=== PATIENT | male | born 1990 | race Caucasian/White ===

== ENCOUNTER 2017-03-04 16:59 | Emergency (ER) | payer BC ==
[~2017-03-04] VITALS: Ht 175.3 cm; Wt 140.0 kg
[2017-03-04 17:00] VITALS: BP 189/102; PULSE 106; RESP 14; TEMP 98.2; O2SAT 99
[2017-03-04 17:01] VITALS: BP 181/86
[2017-03-04] MEDS ORDERED: SODIUM CHLOR 0.9% 1000 ML INJ 1,000 ML IV SCH (17:17)
[2017-03-04] MEDS ORDERED: AMOX875T PO (17:17)
--- NOTE | 2017-03-04 17:17 | PD ---
HPI Chief Complaint: Headache Time Seen by Provider: 17:09 Travel History International Travel<30 days: No Contact w/Intl Traveler<30days: No Traveled to known affect area: No History of Present Illness HPI 20 facial male presents emergency department complaint of right frontal headache that started approximately 1 PM today. Has progressively worsened since onset. Rates pain 7/10. Describes as a pulsation. Denies history of headaches. Currently taking amoxicillin for the past 5 days for sinusitis. Blood pressure is elevated and reports history of high blood pressure readings but does not currently take medications. Denies change in vision. Denies lightheadedness, dizziness. Denies focal deficits or weakness. Denies confusion, disorientation, change in mentation, slurred speech. Denies chest pain, shortness of breath, abdominal pain, vomiting. Has taken Tylenol with no relief of symptoms. [facility] primary care provider. Denies other significant past medical history. No known allergies. Has no medical complaints. No modifying factors or associated signs and symptoms. [facility] Social History Tobacco Use: No Allergies-Medications (Allergen,Severity, Reaction): Coded Allergies: No Known Allergies (Unverified , 03/04/17) Reported Meds & Prescriptions Reported Meds & Active Scripts Active Reported Amoxicillin 875 Mg Tab 875 Mg PO BID 10 Days Review of Systems Except as stated in HPI: all other systems reviewed are Neg Physical Exam Narrative GENERAL: Well-nourished, well-developed male patient, in no acute distress; afebrile, nontoxic-appearing SKIN: Warm and dry. HEAD: Atraumatic. Normocephalic. No facial droop noted. Tongue midline. EYES: Pupils equal and round at 3 mm with brisk reaction. No scleral icterus. No injection or drainage. PERRLA. EOMI. ENT: Mucosa pink and moist. No erythema or exudates. No uvular edema. No uvular , palatal, or tonsillar deviation. Airway patent. EARS: Bilateral pinnae and external canals appear within normal limits. Bilateral tympanic membranes without erythema, dullness or perforation. NECK: Trachea midline. No lymphadenopathy. CARDIOVASCULAR: Regular rate and rhythm. No murmur appreciated. RESPIRATORY: No accessory muscle use. Clear to auscultation. Breath sounds equal bilaterally. GASTROINTESTINAL: Abdomen soft, non-tender, nondistended. Hepatic and splenic margins not palpable. Bowel sounds are active 4 quadrants. MUSCULOSKELETAL: No obvious deformities. No clubbing. No cyanosis. No edema. NEUROLOGICAL: Awake and alert. Oriented 4. No obvious cranial nerve deficits. Motor grossly within normal limits. Normal speech. No ataxia. No mid -line drift. Moves all extremities. 5/5 strength to all extremities. PSYCHIATRIC: Appropriate mood and affect; insight and judgment normal. Data Data Last Documented VS Vital Signs Date Time Temp Pulse Resp B/P (MAP) Pulse Ox O2 Delivery O2 Flow Rate FiO2 03/04/17 18:59 03/04/17 17:00 98.2 [address] Brain W/O Iv Contrast(Rout) (03/04/17 ) Basic Metabolic Panel (Bmp) (03/04/17 17:17) Complete Blood Count With Diff (03/04/17 17:17) Iv Access Insert/Monitor (03/04/17 17:17) Sodium Chlor 0.9% 1000 Ml Inj (Ns 1000 M (03/04/17 17:17) Sodium Chloride 0.9% Flush (Ns Flush) (03/04/17 17:30) Ketorolac Inj (Toradol Inj) (03/04/17 17:30) Metoclopramide Inj (Reglan Inj) (03/04/17 17:30) Ed Discharge Order (03/04/17 18:58) Labs Laboratory Tests Test 03/04/17 17:25 White Blood Count 11.4 TH/MM3 Red Blood Count 5.32 MIL/MM3 Hemoglobin 15.1 GM/DL Hematocrit 45.7 % Mean Corpuscular Volume 85.9 FL Mean Corpuscular Hemoglobin 28.5 PG Mean Corpuscular Hemoglobin Concent 33.1 % Red Cell Distribution Width 13.1 % Platelet Count 288 TH/MM3 Mean Platelet Volume 8.7 FL Neutrophils (%) (Auto) 71.2 % Lymphocytes (%) (Auto) 20.0 % Monocytes (%) (Auto) 6.0 % Eosinophils (%) (Auto) 2.0 % Basophils (%) (Auto) 0.8 % Neutrophils # (Auto) 8.1 TH/MM3 Lymphocytes # (Auto) 2.3 TH/MM3 Monocytes # (Auto) 0.7 TH/MM3 Eosinophils # (Auto) 0.2 TH/MM3 Basophils # (Auto) 0.1 TH/MM3 CBC Comment DIFF FINAL Differential Comment Blood Urea Nitrogen 16 MG/DL Creatinine 0.86 MG/DL Random Glucose 81 MG/DL Calcium Level 8.7 MG/DL Sodium Level 142 MEQ/L Potassium Level 3.8 MEQ/L Chloride Level 110 MEQ/L Carbon Dioxide Level 24.4 MEQ/L Anion Gap 8 MEQ/L Estimat Glomerular Filtration Rate 107 ML/MIN MDM Medical Decision Making Medical Screen Exam Complete: Yes Emergency Medical Condition: Yes Medical Record Reviewed: Yes Differential Diagnosis Cephalgia, hypertension, sinusitis Narrative Course 26-year-old male with cephalgia. Patient's blood pressure is elevated in the ER. He has history of high blood pressure readings but does not currently take medications. Denies chest pain or shortness of breath. Denies history of headaches. Headache onset at approximately 1 PM with worsening. Location is right frontal. Pulsating in nature. Patient is currently being treated with amoxicillin for sinusitis. Discussed the patient with Dr. Harding, my attending physician, and he agrees with my plan of care. CT head, CBC, BMP, Toradol, Reglan, normal saline fluid bolus ordered. 1849: CBC and BMP unremarkable. CT head concluded: Head CT 03/04/17 0000 Signed Impressions: Service Date/Time: Monday, March 04, 2017 18:18 - CONCLUSION: 1. Mild chronic sinusitis. 2. Otherwise negative Jorge Moss MD CT findings discussed with the patient. On reevaluation the patient's says his headache is gone. Blood pressure recheck is 143/83. Discussed signs and symptoms of hypertension and instructed patient to check blood pressure routinely and follow-up with primary care in regards to elevated blood pressure readings. Dr. Harding agrees with treatment plan ans discharge. Instructed patient to follow up with primary care provider. Patient verbalizes understanding and agreement with treatment plan. Patient is medically cleared and stable for discharge. Discussed reasons to return to the emergency department. Patient agrees with treatment plan. The patients vital signs are stable and the patient is stable for outpatient follow-up and treatment. Patient discharged home, stable and in no acute distress. Diagnosis Primary Impression: Acute headache Qualified Codes: R51 - Headache Additional Impressions: Elevated blood pressure reading Chronic sinusitis Qualified Codes: J32.9 - Chronic sinusitis, unspecified Referrals: [facility] Primary Care Physician Patient Instructions: Acute Headache (ED), General Instructions, Hypertension ( ED), Sinusitis (ED) Departure Forms: Tests/Procedures, Work Release Enter return to work date: Mar 05, 2017 Additional Instructions: Antibiotics as prescribed and complete full course Ibuprofen or Tylenol as instructed and as needed for fever/pain [id number] cough and cold medications as directed and as needed for symptom management Get plenty of sleep/rest Drink plenty of fluids to prevent dehydration; popsicles and Gatorade Use an air humidifier/turn off ceiling fans Check blood pressures routinely and log in a diary; take the diary to your primary care provider at your next visit Follow-up with primary care provider Return immediately to the emergency department with worsening of symptoms Med/Other Pt SpecificInfo: No Meds Exist/No RX given Disposition: 01 DISCHARGE HOME Condition: Stable Consuelo Dimas Mar 04, 2017 17:17
[2017-03-04] MEDS ORDERED: KETOROLAC TROMETHAMINE 30 MG/ML (IVP) VIAL IVP ONE (17:30)
[2017-03-04] MEDS ORDERED: SODIUM CHLORIDE 0.9% FLUSH 10 ML FLUSH IV FLUSH PRN (17:30)
[2017-03-04] MEDS ORDERED: METOCLOPRAMIDE HCL 10 MG/2 ML VIAL IV PUSH ONE (17:30)
[2017-03-04 17:58] LABS: AUTOMATED NEUTROPHIL # 8.1 TH/MM3 (1.8-7.7); BASOPHIL # 0.1 TH/MM3 (0-0.2); BASOPHIL % 0.8 % (0.0-2.0); EOSINOPHIL # 0.2 TH/MM3 (0-0.4); HEMATOCRIT 45.7 % (39.0-51.0); HEMO FLAGS DIFF FINAL; LYMPHOCYTE # 2.3 TH/MM3 (1.0-4.8); MEAN CELL VOLUME 85.9 FL (80.0-100.0); MEAN CORPUSCULAR HEMOGLOBIN 28.5 PG (27.0-34.0); MEAN CORPUSCULAR HGB CONC 33.1 % (32.0-36.0); NEUT % 71.2 % (16.0-70.0); PLATELET COUNT 288 TH/MM3 (150-450); RED BLOOD COUNT 5.32 MIL/MM3 (4.50-5.90); RED CELL DISTRIBUTION WIDTH 13.1 % (11.6-17.2); WHITE BLOOD COUNT 11.4 TH/MM3 (4.0-11.0)
[2017-03-04 18:13] LABS: BICARBONATE 24.4 MEQ/L (21.0-32.0); POTASSIUM 3.8 MEQ/L (3.5-5.1)
--- NOTE | 2017-03-04 18:26 | RADRPT ---
EXAM DATE/TIME: 03/04/2017 18:18 [place] COMPARISON: No previous studies available for comparison. INDICATIONS : Headache. RADIATION DOSE: 38.26 CTDIvol (mGy) MEDICAL HISTORY : None SURGICAL HISTORY : None. ENCOUNTER: Initial ACUITY: 1 day PAIN SCALE: 6/10 LOCATION: cranial TECHNIQUE: Multiple contiguous axial images were obtained of the head. Using automated exposure control and adj ustment of the mA and/or kV according to patient size, radiation dose was kept as low as reasonably a chievable to obtain optimal diagnostic quality images. DICOM format image data is available electro nically for review and comparison. FINDINGS: CEREBRUM: The ventricles are normal for age. No evidence of midline shift, mass lesion, hemorrhage or acute in farction. No extra-axial fluid collections are seen. POSTERIOR FOSSA: The cerebellum and brainstem are intact. The 4th ventricle is midline. The cerebellopontine angle i s unremarkable. EXTRACRANIAL: The visualized portion of the orbits is intact. The cobra ostial thickening in the ethmoid air cells bilaterally with minimal endosteal thickening posteriorly in the left maxillary antra. SKULL: The calvaria is intact. No evidence of skull fracture. CONCLUSION: 1. Mild chronic sinusitis. 2. Otherwise negative Jorge Moss MD on March 04, 2017 at 18:22 Board Certified Radiologist. This report was verified electronically.
[2017-03-04 18:59] VITALS: BP 133/87
== END 2017-03-04 19:45 | disposition home or self-care (01) ==
LOC: NEPD 16:59
DX: R51 Headache (principal); R03.0 Elevated blood-pressure reading, without diagnosis of hypertension; J32.9 Chronic sinusitis, unspecified
CPT/HCPCS: 70450; 80048; 85025; 96374; 96375; 99285; J1885; J2765; J7030